=== PATIENT | female | born 1995 | race Caucasian/White ===

== ENCOUNTER 2024-07-16 11:11 | Outpatient (AMB) | payer OTHER, SELFPAY ==
--- NOTE | 2024-07-16 11:21 | MHC.OFFWIV ---
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 Patient Tobacco Use Status: Never used Tobacco Allergies No Known Allergies Allergy (Verified 07/16/24 11:24) Do you need a note to return to daycare/school/sports/work: No HPI HPI Comments History of Present Illness Details Patient is a 29-year-old female who states she starting a new job and part of the paperwork she needs is to have a tuberculosis test to prove she does not have it. She states she was [place] and had all of her normal childhood vaccines. [facility] Social History Patient Tobacco Use Status: Never used Tobacco Review of Systems Const All systems reviewed & are unremarkable except as noted in HPI and below Physical Exam Vital Signs: Last Vital Signs Pulse 78 07/16/24 11:23 BP 112/74 07/16/24 11:23 Pulse Ox 98 07/16/24 11:23 Oxygen Delivery Method Room Air 07/16/24 11:23 BMI result Body Mass Index 22.0 Const General: cooperative, healthy appearing, comfortable, no acute distress and well developed Orientation/consciousness: patient oriented x3 Limitations: no limitations HEENT Head: Yes normal to inspection Ears: hearing grossly normal bilaterally General nose exam: Normal external nose present Face and sinus: Yes normal facial exam Eyes General: appearance normal, both eyes and all related structures Neck Neck: Yes normal visual inspection and Yes full ROM Resp Effort & Inspection: normal respiratory effort and able to speak in complete sentences Skin General skin exam: no rashes or lesions noted Neuro General: patient oriented x3 Extrem General: Yes normal to inspection Assessment & Plan Assessment & Plan (1) Tuberculosis screening: Code(s): Z11.1 - Encounter for screening for respiratory tuberculosis Plan: Ordered T spot for patient, advised to could take a couple of days before the result comes back. Plan see above Orders: Orders T Spot TB Today Z11.1 - Encounter for screening for respiratory tuberculosis Coding Level of Care Code New Pt Level 2 (86736) Diagnoses Tuberculosis screening Z11.1
[2024-07-16 11:23] VITALS: BP 112/74; PULSE 78; O2SAT 98; BMI 22.0
== END 2024-07-16 11:56 | disposition home or self-care (01) ==
PROVIDERS: PCP Internal Medicine; Visit Provider Physician Assistant
DX: Z11.1 Encounter for screening for respiratory tuberculosis (principal)

== ENCOUNTER → 2024-07-16 11:11 | Outpatient (BNVA) | payer OTHER, SELFPAY | PROVIDERS: PCP Internal Medicine ==

== ENCOUNTER 2024-07-16 11:44 | Outpatient (REF) | payer OTHER, SELFPAY ==
[2024-07-19 01:57] LABS: TS Negative Control Passed; TS Panel A 1; TS Panel B 1; TS Positive Control Passed; TSpotTB Negative (Negative)
== END 2024-07-16 11:45 | disposition home or self-care (01) ==
LOC: HO.HMGCLDS 11:44
PROVIDERS: PCP Internal Medicine; Visit Provider Physician Assistant
DX: Z11.1 Encounter for screening for respiratory tuberculosis (principal)
CPT/HCPCS: 36415; 86481; 99202

== ENCOUNTER 2025-02-07 08:39 | Outpatient (AMB) | payer OTHER, SELFPAY ==
--- OUTSIDE RECORDS SUMMARY | 2025-02-07 09:08 | XMS_ITS | Encounter Summary ---
Author Organization [facility] Address [address] [place] [address] Phone Care Team Providers Care Invoicing Machine Operator Name Role Phone Lulu Nelson NP Primary Care Provider [phone] Encounter Details Date Type Department Care Team (Late st Contact Info) Description 05/21/2017 Conversion Encounter [facility] - [address], [address] [place] [address] Lulu Nelson NP [address] [place] [address] Social History Tobacco Use Types Packs/Day Years Used Date Smoking Tobacco: Never Assessed Comments Unknown Sex and Gender Information Value Date Recorded Sex Assigned at Not on file Legal Sex Female 5:45 PM EST Gender Identity Not on file Sexual Orientation Not on file documented as of this encounter Plan of Treatment Not on file documented as of this encounter Visit Diagnoses Not on filedocumented in this encounter Care Teams Invoicing Machine Operator Relationship Specialty Start Date End Date Lulu Nelson NP [address] [place] [address] PCP - General 12/03/16 04/25/21 documented as of this encounter
--- OUTSIDE RECORDS SUMMARY | 2025-02-07 09:08 | XMS_ITS | Encounter Summary ---
Author Organization [facility] Address [address] [place] [address] Phone Care Team Providers Care Lay Out Inspector Name Role Phone Katerin Salvador CNM Unavailable Katerin Hubbard CNM Unavailable [phone] Afsaneh Drummond ASSET PROTECTION MANAGER Unavailable [phone] Flora Moncada MD Unavailable Bre Tolbert CNM Unavailable [phone] Diego Ramirez MD Unavailable [phone] Unknown, Unknown Primary Care Provider Santosh Chung MD Unavailable [phone] Encounter Details Date Type Department Care Team (Latest Contact Info) Description 03/04/2019 Transcribe Orders [facility] [address] [place] [address] Ana M Montes De Oca, CNM [address] [facility], [address] [place] [address] Acute cystitis without hematuria (Primary Dx) Social History Tobacco Use Types Packs/Day Years Used Date Smoking Tobacco: Never Smokeless Tobacco: Never Alcohol Use Standard Drinks/Week Comments Yes 0 (1 standard drink = 0.6 oz pur e alcohol) once monthly Sex and Gender Information Value Date Recorded Sex Assigned at Female 07/26/2018 5:36 PM EDT Gender Identity Female 07/26/2018 5:36 PM EDT Sexual Orientation Straight 07/26/2018 5: 36 PM EDT documented as of this encounter Plan of Treatment Not on file documented as of this encounter Visit Diagnoses Diagnosis Acute cystitis without hematuria- Primary documented in this encounter Additional Health Concerns Infection Onset Date Last Indicated Resolved Time CoV-Risk 09/08/2023 09/08/2023 09/19/2023 1:24 AM EST documented as of this encounter Care Teams Lay Out Inspector Relationship Specialty Start Date End Date Unknown, Unknown, [address] [place] [address] PCP - General 07/26/18 Katerin Salvador CNM [address] [place] [address] Historical LMR Provider 07/31/17 10/20/21 Katerin Hubbard CNM [address] [place] [address] Historical LMR Provider 07/31/17 10/20/21 Afsaneh Drummond NP [address] [place] [address] Historical LMR Provider 07/31/17 10/20/21 Flora Moncada MD [address] [place] [address] Historical LMR Provider 07/31/17 10/20/21 Bre Tolbert CNM [address] [place] [address] Historical LMR Provider 07/31/17 10/20/21 Diego Ramirez MD [address] [facility] [address] [place] [address] [email or web address] Historical LMR Provider 07/31/17 10/20/21 Santosh Gold MD [address] [place] [address] [address] [place] [address] [email or web address] Insurance Assigned Provider 01/17/2406/19/24 documented as of this encounter Additional Source Comments The information contained in this document represents components of the legal health record. It is not the complete legal health record.[facility]
--- OUTSIDE RECORDS SUMMARY | 2025-02-07 09:08 | XMS_ITS | Clinical Summary ---
Author Organization [facility] Address [address] [place] [address] Phone Care Team Providers Care Corporate Representative Name Role Phone Unknown, Unknown Primary Care Provider Unavai lable Allergies No known active allergies Medications Medication Sig Dispensed Refills Start Date End Date Status capsaicin (ZOSTRIX-HP) 0.075 % topical cream Apply topically 3 (three) times a day. Apply to abdominal wall 120 g 09/08/2023 Active Immunizations Name Administration Dates Next Due DTaP 06/07/1998, 5,02/23/1994,08/17,1993 HPV,quadrivalent 01/25/2011,10/26/2010, 0 Hepatitis B 05/04/1999,11/01/1998,06/07/1998 Hib,PRP-T 05/25/1998, 4,1993,06/20 Influenza Quadrivalent Prese rvative Free IM 09/17/2013 Influenza quadrivalent nasal 07/28/2012 MMR 06/07/1998,08/19/1994 Meningococcal MCV4P 09/17/2013,05/17/2008 Polio - OPV 06/07/1998, 5,1993,08/17,1993 Td (adult),2 Lf Tetanus Toxo id, PF, Adsorbed 01/23/2005 Tdap 12/09/2014,05/17/2008 Varicella 05/04/2007,06/07/1998 Family History Medical History Relation Comments Hypertension Father Breast cancer Paternal Grandmother Relation Status Comments Father Alive Mother Alive Paternal Grandmother Social History Tobacco Use Types Packs/Day Years Used Date Smoking Tobacco: Never Smokeless Tobacco: Never Alcohol Use Standard Drinks/Week Comments Yes 0 (1 standard drink = 0.6 oz pur e alcohol) once monthly Education Answer Date Recorded Are you interested in more education? Not on jamilah e 02/07/2023 Are you concerned about learning? Not on file 02/07/2023 No 02/07/2023 No 02/07/2023 Digital Access Answer Date Recorded No 03/07/2023 No 03/07/2023 No 03/07/2023 Reliable internet access at home? Not on file 03/07/2023 Device with a working camera? Not on file Intimate Partner Violence Answer Date R ecorded Are you denied basic needs s uch as food, clothing, or medical care? No 09/08/2023 In the past 12 months have y ou been in a relationship with a person who hurts, threatens, or tries to control you? No 09/08/2023 Are you denied basic needs s uch as food, clothing, or medical care? No 09/08/2023 In the past 12 months have y ou been in a relationship with a person who hurts, threatens, or tries to control you? No 09/08/2023 Sex and Gender Information Value Date Recorded Sex Assigned at Female 07/26/2018 5:36 PM EDT Gender Identity Female 07/26/2018 5:36 PM EDT Sexual Orientation Straight 07/26/2018 5: 36 PM EDT Last Filed Vital Signs Vital Sign Reading Time Taken Comments Blood Pressure 116/79 09/08/2023 9:22 AM EST Pulse 54 09/08/2023 9:22 AM EST Temperature 36.8 ??C (98.2 ??F) 09/08/2023 9:22 AM ES T Respiratory Rate 18 09/08/2023 9:22 AM EST Oxygen Saturation 100% 09/08/2023 9:22 AM EST Inhaled Oxygen Concentration - - Weight 77.1 kg (170 lb) 09/08/2023 7:27 AM EST Height 172.7 cm (5' 8 ) 09/08/2023 7:27 AM EST Body Mass Index 25.85 09/08/2023 7:27 AM EST Plan of Treatment Health Maintenance Due Date Last Done Comments DEPRESSION SCREENING 2005 PAP SMEAR 09/07/2021 09/07/2018, 09/07/2018 INFLUENZA VACCINE (#1) 2024 09/17/2013, 2011 COVID-19 VACCINE ( season) 2024 01/31/2021 Adult Td,Tdap Booster 12/09/2024 12/09/2014 , 05/17/2008, 01/23/2005 HIB VACCINES Aged Out 05/25/1998, 11/13, 1993, Additional history exists No longer eligible based on patient's age to complete this topic MENINGOCOCCAL VACCINES (ACWY) Aged Out 09/17/2013, 05/17/2008 No longer eligibl e based on patient's age to complete this topic SMOKING STATUS SCREENING (Once After 26 Yrs) Completed 09/07/2018 HEPATITIS C SCREENING Completed 03/04/2019 HIV ONE-TIME SCREENING (18-65 YEARS) Completed 03/04/2019 HEPATITIS A VACCINES Aged Out No long er eligible based on patient's age to complete this topic PNEUMOCOCCAL VACCINES (0-49 years) Aged Out No longer eligible based on patient's age to complete this topic Medical Devices Not on file Procedures Procedure Name Priority Date/Time Associated Diagnosis Comments HEPATITIS C ANTIBODY, QUALITATIVE Routine 03/04/2019 9:19 AM EDT History of UTI PAP TEST Routine 09/07/2018 12:00 AM EST from Last 3 Months or Most Recently Relevant to Health Maintenance Results * Hepatitis C antibody, qualitative (03/04/2019 9:19 AM EDT) HCV Negative Negative [facility] Comment: This is a screening test and should be confirmed with molecular testing Blood 03/04/2019 9:19 AM EDT 03/04/2019 9:28 AM EDT Ana M [facility] BLOOD CATHERINE TOBIAS GREENE RADHA [address] [address] * Pap Smear (09/07/2018 12:00 AM EST) 09/07/2018 09/08/2018 2:2 5 PM EST Narrative SEE NARRATIVE - 09/14/2018 12:27 PM EST [address] [address] Motor Mechanic: Diesy Crump MD ?? COTTON WEIGHER Cytology Report FINAL DIAGNOSIS A. ??PAP SMEAR (SUREPATH) CE: SPECIMEN ADEQUACY: Satisfactory for evaluation; transformation zone present. INTERPRETATION: NEGATIVE FOR INTRAEPITHELIAL LESION OR MALIGNANCY. Coccobacilli consistent with shift in imani Electronically Signed Out By: ??NILO Franco(ASCP) The Pap test is a screening test primarily for squamous cancers and precursors and has associated false-negative and false-positive results. ??New technologies such as liquid-based preparations may decrease but will not eliminate all false-negative results. ??Regular sampling and follow-up of unexplained clinical signs and symptoms are recommended to minimize false negative results. CLINICAL HISTORY Date of Last Menstrual Period: ??09/07/2018 Other Clinical Conditions: ??Screening Pap SPECIMEN SOURCE A: PAP SMEAR (SUREPATH) CE Patient Name: ??MARICRUZ RUGGIERO : ??1995 (Age: 23) Sex: ??F Institution: ??[facility] Location: ??[facility] Date of Collection: ??09/07/2018 Date of Reported: ??09/14/2018 12:27 Results to: Ana M Montes De Oca MSN Ana M Montes De Oca CNM CYTOLOGY ORDER ANISH SEE NARRATIVE from Last 3 Months or Most Recently Relevant to Health Maintenance Care Teams Corporate Representative Relationship Specialty Start Date End Date Unknown, Unknown, PCP - General 07/26/18 Additional Source Comments The information contained in this document represents components of the legal health record. It is not the complete legal health record.[facility]
--- OUTSIDE RECORDS SUMMARY | 2025-02-07 09:08 | XMS_ITS | Clinical Summary ---
Author Organization [facility] Address [address] [place] [address] Care Team Providers Care Tunnel Kiln Operator Name Role Phone Unavailable Primary Care Provider Unavailabl e Source Comments PLEASE NOTE, if this patient is a minor, it may be UNLAWFUL to discuss sensitive information that is contained in these records (such as FAMILY PLANNING, MENTAL HEALTH or SUBSTANCE ABUSE) with the minor patient's parent or other person without the patient's specific authorization.[facility] Immunizations Immunization Administration Dates Next Due Moderna COVID-19 Vaccine, re d cap blue label, 12+ Primary Series 01/31/2021,01/01/2021 Social History Tobacco Use Types Packs/Day Years Used Date Smoking Tobacco: Never Assessed Social Connections Answer Date Recorded Social Connections and Isolation 0 01/01/2021 Financial Resource Strain Answer Date R ecorded Financial Resource Strain 0 2020 Stress Answer Date Recorded Stress 0 01/01/2021 Physical Activity Answer Date Recorded Physical Activity 0 01/01/2021 Food Insecurity Answer Date Recorded Food 0 01/01/2021 Transportation Needs Answer Date Record ed Transportation 0 01/01/2021 Housing Stability Answer Date Recorded Housing 0 01/01/2021 Safety and Environment Answer Date Sulaiman rded Safety 0 01/01/2021 Utilities Answer Date Recorded Utilities 0 01/01/2021 Employment Answer Date Recorded Employment 0 01/01/2021 Comments Unknown Sex and Gender Information Value Date Recorded Sex Assigned at Not on file Legal Sex Female 7:10 AM PDT Gender Identity Not on file Sexual Orientation Not on file Plan of Treatment Health Maintenance Due Date Last Done Comments Anxiety Screening 1993 HPV Screening 1993 Hepatitis C Screening 1993 Pap + HPV 1993 Tobacco Screening 1993 HIV Screening 2008 Relationship Safety Screening/Counseling 2008 Hypertension Screening (#1) 2011 Imm-DTaP/Tdap/Td (1 - Tdap) 2012 Imm-Hepatitis B (1 of 3 - 19 + 3-dose series) 2012 Cervical Cancer Screening 2014 Pap Smear 2014 [id number] ( season) 06/13/202401/31/ 021, 01/01/2021 Imm-Influenza (#1) 2024 Alcohol and Drug Screen 10/13/2024 Depression Annual Screen 10/13/2024 Cervical Ablation/Cold-Knife Conization Discontinued Cervical Cryotherapy Discontinued Colposcopy Discontinued Endometrial Biopsy Discontinued Excision/Leep Discontinued HPV Genotyping Discontinued Vaginal Pap Discontinued Vulvoscopy Discontinued Insurance [employer] Member Subscriber Plan / Payer (Ef fective 2019-Present) Name:Dominick Ruggiero Relation to Subscriber:Self Name:Dominick Ruggiero Payer ID:[id number] Group ID:Not on file Type:Medicaid Address: [address] [facility] [address] [place] [address]
--- OUTSIDE RECORDS SUMMARY | 2025-02-07 09:08 | XMS_ITS | Clinical Summary ---
Author Organization [facility] Address [address] [place] [address] Phone Care Team Providers Care Manufacturing Design Engineer Name Role Phone Unavailable Primary Care Provider Unavailabl e Immunizations Immunization Administration Dates Next Due DTaP 06/07/1998, 5,02/23/1994,08/17,1993 HPV, Quadrivalent 01/25/2011,10/26/2010,06/15/20 10 Hep B, ped/adol 05/04/1999,11/01/1998,06/07/1998 Hib (PRP-T) 05/25/1998, 4,1993,06/20 Influenza, injectable, quadr ivalent, preservative free 09/17/2013 Influenza, intranasal, trivalent 07/28/2012 MMR 06/07/1998,08/19/1994 Meningococcal Conj (Menactra) MCV4P 09/17/2013,0 05/17/2008 OPV 06/07/1998, 5,1993,08/17,1993 Td (adult) (MBL), 2 Lf tetan us toxoid, PF, adsorbed 01/23/2005 Tdap 05/17/2008 Varicella 05/04/2007,06/07/1998 Family History Relation Name Status Comments Maternal Grandfather Materna l Uncle: AIDS Maternal Grandmother Materna l Aunt: cancer, substance abuse Other 1 AIDS Other 2 cancer, substan ce abuse Other 3 substance abuse Other 4 substance abuse Other 5 Paternal Grand Father: substance abuse Other 6 Paternal Grand Mother: substance abuse Paternal Grandfather substan ce abuse Paternal Grandmother substan ce abuse Social History Tobacco Use Types Packs/Day Years Used Date Smoking Tobacco: Never Assessed Comments Unknown Sex and Gender Information Value Date Recorded Sex Assigned at Not on file Legal Sex Female 5:45 PM EST Gender Identity Not on file Sexual Orientation Not on file Last Filed Vital Signs Vital Sign Reading Time Taken Comments Blood Pressure 100/56 09/17/2013 12:00 AM EST Pulse 89 07/28/2012 12:00 AM EDT Temperature 36.8 ??C (98.3 ??F) 01/25/2011 12:00 AM E DT Respiratory Rate - - Oxygen Saturation - - Inhaled Oxygen Concentration - - Weight 68.3 kg (150 lb 9.6 oz) 09/17/2013 12:00 AM EST Height 171.5 cm (5' 7.5 ) 09/17/2013 12:00 AM ES T Body Mass Index 23.24 09/17/2013 12:00 AM EST Plan of Treatment Health Maintenance Due Date Last Done Comments DTaP,Tdap,and Td Vaccines (7 - Td or Tdap) 05/17/2018 05/17/2008, 01/23/2005, 06/07/1998, Additional history exists Influenza Vaccines (#1) 2024 09/17/2013, 07/28 COVID-19 Vaccine ( season) 2024 HIB Vaccines Aged Out 05/25/1998, 11/13, 1993, Additional history exists No longer eligible based on patient's age to complete this topic IPV Vaccines Completed 06/07/1998, 10/13, 1993, Additional history exists MMR Vaccines Completed 06/07/1998, 08/19/1994 Hepatitis B Vaccines Completed 05/04/1999, 11/01/1998, 06/07/1998 Varicella Vaccines Completed 05/04/2007, 06/07/1998 HPV Vaccines Completed 01/25/2011, 10/13, 06/15/2010 Meningococcal Vaccine Aged Out 09/17/2013, 008 No longer eligible based on patient's age to complete this topic Hepatitis A Vaccines Aged Out No long er eligible based on patient's age to complete this topic Men B Vaccine Aged Out No longer elig ible based on patient's age to complete this topic Pneumococcal Vaccine Aged Out No long er eligible based on patient's age to complete this topic Procedures * Due to [place] state law, this organization might not be sharing sensitive test results. Procedure Name Priority Date/Time Associated Diagnosis Comments CHLAMYDIA AND GONORRHEA, AMPLIFIED Routine 11/25/2014 12:00 AM EST from Last 3 Months or Most Recently Relevant to Health Maintenance Results * Due to [place] state law, this organization might not be sharing sensitive test results. * Chlamydia and Gonorrhoea, Amplified (11/25/2014 12:00 AM EST) SOURCE (CHLAMYDIA): CERVIX CONVERTED LABS Comment: Ugo Aceves ??11/25/2014 02:15:14 PM > Negative Reason: Received -[facility] Lab Order Black Leather Buffer CHLAMYDIA TRACHO A Negative Negative CONVERTED LABS Comment: Ugo Aceves ??11/25/2014 02:15:14 PM > Negative Reason: Received -[facility] Lab Order Black Leather Buffer CHLAMYDIA TRACHO A Negative Negative CONVERTED LABS Comment: Ugo Aceves ??11/25/2014 02:15:14 PM > Negative Reason: Received -[facility] Lab Order Black Leather Buffer ORDERING PROVIDER LILA NGUYỄN CONVERTED LABS Comment: Ugo Aceves ??11/25/2014 02:15:14 PM > Negative Reason: Received -[facility] Lab Order Black Leather Buffer SOURCE (NEISSERIA): CERVIX CONVERTED LABS Comment: Ugo Aceves ??11/25/2014 02:15:14 PM > Negative Reason: Received -[facility] Lab Order Black Leather Buffer NEISSERIA GONORRHOEAE A Negative Negative CONVERTED LABS Comment: Ugo Aceves ??11/25/2014 02:15:14 PM > Negative Reason: Received -[facility] Lab Order Black Leather Buffer 11/25/2014 Narrative CONVERTED LABS - 11/25/2014 12:00 AM EST Chlamydia and GC DNA us Jimmy Thakkar MD LAB MICROBIOLOGY - GENERAL ORDER ANISH Final Result CONVERTED LABS from Last 3 Months or Most Recently Relevant to Health Maintenance
--- OUTSIDE RECORDS SUMMARY | 2025-02-07 09:08 | XMS_ITS | Clinical Summary ---
Author Organization [facility] Address [address] [place] [address] [address] [place] [address] Care Team Providers Care Bilingual Operator Name Role Phone Unavailable Primary Care Provider Unavailabl e Allergies No known active allergies Medications No known medications Encounters Date Type Department Care Team Description 12/20/2024 3:00 PM EDT Office Visit [facility] [address] [place] [address] Siobhan Urbina Encounter for dental examination (Primary Dx); Stage 2 grade B generalized periodontitis per AAP/EFP 2017 classification from Last 3 Months Social History Tobacco Use Types Packs/Day Years Used Date Smoking Tobacco: Never Smokeless Tobacco: Never Tobacco Cessation:Counseling Given: Not Answered Alcohol Use Standard Drinks/Week Comments Yes 0 (1 standard drink = 0.6 oz pur e alcohol) Comments Unknown Sex and Gender Information Value Date Recorded Sex Assigned at Female 12/09/2024 9:29 AM EST Legal Sex Female 9:24 AM EST Gender Identity Female 12/09/2024 9:29 AM EST Sexual Orientation Straight 12/09/2024 9: 29 AM EST Plan of Treatment Upcoming Encounters Date Type Department Care Team (Late st Contact Info) Description 07/04/2025 4:00 PM EDT Office Visit [facility] [address] [place] [address] Siobhan Urbina Health Maintenance Due Date Last Done Comments Depression Screening 1993 HIV Screening 1993 SDOH Screening 1993 Alcohol/Substance Use Screening 2005 Family Planning (PISQ) 2008 Hepatitis C Screening 2011 Pap Smear 2014 Cervical Cancer Screening 2023 HPV/Cotest 2023 COVID-19 Vaccine ( season) 2024 10/03/2021, 01/31/2021, 01/01/2021 Dental Oral Exam 06/23/2025 12/20/2024 Dental Prophylaxis 06/23/2025 12/20/2024 Tobacco Screening 12/20/2025 12/20/2024 Dental X-Ray: Bitewings 12/21/2025 12/20/2024 Dental X-Ray: Full Mouth 12/22/2027 12/20/2024 DTaP/Tdap/Td Vaccines (9 - Td or Tdap) 07/07/2034 07/07/2024, 12/09/2014, 05/17/2008, Additional history exists Zoster Vaccines (1 of 2) 2043 RSV Patients and Patients Aged 60 years or older (1 - 1-dose 75+ series) 2068 HIB Vaccines Aged Out 05/25/1998, 11/13, 1993, Additional history exists No longer eligible based on patient's age to complete this topic IPV Vaccines Completed 06/07/1998, 10/13, 1993, Additional history exists Hepatitis B Vaccines Completed 05/04/1999, 11/01/1998, 06/07/1998 HPV Vaccines Completed 01/25/2011, 10/13, 06/15/2010 Meningococcal Vaccine Aged Out 09/17/2013, 008 No longer eligible based on patient's age to complete this topic Influenza Vaccine Completed 07/07/2024, , 07/28/2012 Hepatitis A Vaccines Aged Out No long er eligible based on patient's age to complete this topic Pneumococcal Vaccine: Pediatrics (0 to 5 Years) and At-Risk Patients (6 to 49) Years) Aged Out No longer eligible based on patient's age to complete this topic RSV under 20 months Aged Out No longe r eligible based on patient's age to complete this topic Rotavirus Vaccines Aged Out No longer eligible based on patient's age to complete this topic Procedures Procedure Name Priority Date/Time Associated Diagnosis Comments CASE PRESENTATION, DETAILED AND EXTENSIVE TREATMENT PLANNING Routine 12/20/2024 3:00 PM EDT ORAL HYGIENE INSTRUCTIONS Routine 2024 3:00 PM EDT INTRAORAL - COMPLETE SERIES OF RADIOGRAPHIC IMAGES Routine 12/20/2024 3:00 PM EDT PROPHYLAXIS - ADULT Routine 12/20/2024 3 :00 PM EDT COMPREHENSIVE ORAL EVALUATION - NEW OR ESTABLISHED PATIENT Routine 12/20/2024 3:00 PM EDT from Last 3 Months Insurance [facility] AD[place]
--- NOTE | 2025-02-07 09:56 | AM.OFFWIN_ITS ---
Intake Vital Signs 02/07/25 09:57 Height 5 ft 8 in Weight 157 lb BMI 23.9 BP 112/70 Blood Pressure Location Rt brachial Position Sitting Intake Visit Reasons: EP rash Intake Note: Patient here for right sided back rash that has been present for about 3 weeks. Patient Tobacco Use Status: Never used Tobacco Allergies No Known Allergies Allergy (Verified 07/16/24 11:24) Do you need a note to return to daycare/school/sports/work: No HPI HPI Comments History of Present Illness Details History of Present Illness - The patient is a 29-year-old female pr esenting with a rash on the skin on her right low back. - Approximately three weeks ago, she not iced a rash characterized by a ring- shaped appearance, initially misdiagnosed by the patient as ringworm. - The use of antifungal cream led to inc reased dryness without improvement, garcia ggesting misidentification. - The rash location is surrounded by shadia ker sticky areas from prior Band-Aid application. - The patient reports occasional itching - The patient reported no prior history of eczema and denied other potential causes like fever or tick bites. - The rash developed with red borders bu t has since evolved in appearance, with no trauma to the area. Physical Exam General: Cooperative, healthy appearing, comfortable, no acute distress and well developed Orientation: Patient oriented x3 Limitations: No limitations Head: Normal to inspection Ears: Hearing grossly normal bilaterally Nose: Normal External nose present Face and sinus: Normal facial exam Eyes: Appearance normal, both eyes and all related structures Neck: Normal visual inspection and Yes full ROM Respiratory: Normal respiratory effort and able to speak in complete sentences. Skin: right low back has 2cm square area of raised erythema with dryness Neuro: Patient oriented x3 Extremities: Normal to inspection [facility] Social History Patient Tobacco Use Status: Never used Tobacco Review of Systems Const All systems reviewed & are unremarkable except as noted in HPI and below Physical Exam Vital Signs: Last Vital Signs BP 112/70 02/07/25 09:57 BMI result Body Mass Index 23.9 Assessment & Plan Assessment & Plan (1) Eczema: Code(s): L30.9 - Dermatitis, unspecified Qualifiers: Eczema type: unspecified Qualified Code(s): L30.9 - Dermatitis, unspecified Plan: The rash is consistent with eczema, and treatment with Triamcinolone cream is advised. The patient will apply it twice daily, with improvement expected within a few days. This intervention addresses inflammation and alleviates itchiness. If no improvement in her symptoms after 1 week of twice daily usage, she should return to the clinic or follow up with her PCP. Patient was informed and verbally consented to the use of an ambient scribe for clinic note documentation during this visit. Medications: New triamcinolone acetonide 0.1% 1 appl topical BID 30 grams 0RF Coding Level of Care Code Est Pt Level 3 (41387) Diagnoses Eczema, unspecified type L30.9 Eczema type: unspecified
[2025-02-07 09:57] VITALS: BP 112/70; BMI 23.9
== END 2025-02-07 10:24 | disposition home or self-care (01) ==
PROVIDERS: PCP Internal Medicine; Visit Provider Physician Assistant
DX: L30.9 Dermatitis, unspecified (principal)

== ENCOUNTER → 2025-02-07 08:39 | Outpatient (BNVA) | payer OTHER, SELFPAY | PROVIDERS: PCP Internal Medicine | DX: L30.9 Dermatitis, unspecified (principal) | CPT/HCPCS: 99212 ==

== ENCOUNTER 2025-03-03 12:45 | Outpatient (AMB) | payer OTHER, SELFPAY ==
--- NOTE | 2025-03-03 12:47 | A.OFFPC_ITS ---
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 Last pap smear November Is last menstrual period known: Yes Last menstrual period: 02/09/25 Allergies No Known Allergies Allergy (Verified 03/03/25 13:30) Medication List - Last Reconciled 03/03/25 by Leela George MD No Known Home Meds Tobacco use date assessed: 03/03/25 Dental Screening Dental Screen Date: 03/03/25 Did you have a dental visit in the last 12 months?: Yes Did you have a dental problem in the last 6 months where you did not have access to dental care?: No Was dental information given to patient?: Patient has dentist HPI MEDICAL ASSISTANT PER DIEM-PE HPI Details - The patient is a 29-year-old female ne w to practice, here to establish care and for physical exam. She also requests control counseling and STI testing due to recent resumption of sexual activity. - She has removed the Nexplanon due to h ormonal side effects and is considering other contraceptive options such as oral pills or a patch. - Her medical history includes cannabis hyperemesis syndrome, managed by cessation of cannabis use since December, and a past H. pylori infection treated with antibiotics and omeprazole. - She reports regular menstruation and a family history of prostate and breast cancer. - Past contraceptive methods include the oral contraceptive pill and NuvaRing, neither of which she found suitable. - Up to date with routine vaccinations e xcept for COVID-19 booster due to a bad reaction. - Cervical cancer screening is normal, p erformed within the past few months. - Discussed breast cancer risk due to fa melanie history and the need for regular exams. [facility] Medical History (Updated 03/03/25 @ 13:38 by Leela George MD) Cannabis hyperemesis syndrome concurrent with and due to cannabis abuse Surgical History (Updated 03/03/25 @ 13:38 by Leela George MD) No pertinent past surgical history Family History (Updated 03/03/25 @ 13:42 by Leela George MD) Paternal Aunt Mental health disorder Substance abuse Paternal Grandmother Breast cancer, Onset Age: 70 Father Prostate cancer, Onset Age: 60 Social History Housing: House Patient Tobacco Use Status: Never used Tobacco e-Cigarette/Vaping Use: Never Used service: No Current occupational status: employed Cognitive needs: No Hearing needs: No Vision needs: No Female Reproductive History Menstrual Age of Menarche: 10 Duration of menses: 6-7 days Date of last menstrual period: 02/09/25 Questionnaire PHQ-9 Over the last 2 weeks, how often have you been bothered by any of the following problems? 1. Little interest or pleasure in doing things: not at all 2. Feeling down, depressed, or hopeless: not at all 3. Trouble falling or staying asleep, or sleeping too much: not at all 4. Feeling tired or having little energy: not at all 5. Poor appetite or overeating: not at all 6. Feeling bad about yourself - or that you are a failure or have let yourself or your family down: not at all 7. Trouble concentrating on things, such as reading the newspaper or watching television: not at all 8. Moving or speaking so slowly that other people could have noticed. Or the opposite - being so fidgety or restless that you have been moving around a lot more than usual: not at all 9. Thoughts that you would be better off or of hurting yourself in some way: not at all Total score: 0 Depression Screening Interpretation: Negative Depression Screening Done: Yes 33860 - PHQ-9 Billing: Yes Source: Developed by Drs. Grant Abreu, Ayde Sorenson, Manuel Fischer and colleagues, with an educational yuki from [employer]. Thrive Questionnaire Date Thrive assessed: 03/03/25 I am a: Patient What is your living situation today?: I have a steady place to live Within the past 12 months, did the food you bought not last and you didn't have the money to get more?: Never true Within the past 12 months, did you worry whether your food would run out before you got money to buy more?: Never true Do you have trouble paying for medicines?: No Do you have trouble getting transportation to medical appointments?: No Do you have trouble paying your heating and electricity bill?: No Do you have trouble taking care of your child, family member or friend?: No Do you have trouble with day-to-day activities such as bathing, preparing meals, shopping, managing finances, etc.?: No Are you currently unemployed and looking for a job?: No Are you interested in more education?: No Please select the resources that you would like help with: None Currently or been in a relationship where the following occur: No concerns reported THRIVE Score: 0 AUDIT C Alcohol Use Questionnaire (AUDIT-C) 1. How often do you have a drink containing alcohol?: Monthly or less 2. How many drinks containing alcohol do you have on a typical day when you are drinking?: 1 or 2 3. How often do you have six or more drinks on one occasion?: Never Total Score: 1 Score Reviewed/Action Taken: Yes REJI-7 AMB Questionnaire REJI-7 Date REJI - 7 assessed: 03/03/25 Feeling nervous, anxious, or on edge: 1 = Several days Not being able to stop or control worryin = Not at all Worrying too much about different things: 1 = Several days Trouble relaxin = Not at all Being so restless that it is hard to sit still: 0 = Not at all Becoming easily annoyed or irritable: 1 = Several days Feeling afraid as if something awful might happen: 0 = Not at all Total REJI-7 score (0-4 normal; 5-9 mild; 10-14 moderate; 15-21 severe): 3 Source: Developed by Drs. Grant Abreu, Ayde Sorenson, Manuel Fischer and colleagues, with an educational yuki from [employer]. REJI-7 Assessment Billing REJI-7 Assessment Tool: REJI-7 Assessment 23029 Review of Systems Const Denies body aches, Denies fatigue, Denies fever(s), Denies headache(s) and Denies weakness Eyes Denies change in vision, Denies eye discharge and Denies itchy eyes ENT Denies dizziness, Denies headache(s), Denies nasal congestion, Denies nasal discharge and Denies sore throat Card Denies chest pain, Denies lightheadedness, Denies palpitations and Denies dyspnea Resp Denies chest congestion, Denies cough, Denies dyspnea and Denies wheezing GI Denies abdominal pain, Denies change in bowel habits and Denies heartburn Denies abnormal vaginal bleeding, Denies hematuria, Denies urinary frequency, Denies dysuria, Denies urinary urgency, Denies vaginal discharge and Denies vaginal pruritus Musc Reports no additional complaints Skin/Breast Denies breast pain, Denies breast mass, Denies lesions and Denies rash Neuro Denies dizziness, Denies headache(s) and Denies weakness Psych Reports no additional complaints Endo Denies fatigue, Denies polydipsia, Denies polyuria and Denies palpitations Chinedu/Lymph Denies easy bruising Aller/Immun Denies itchy eyes, Denies seasonal rhinorrhea and Denies wheezing Physical exam (Primary Care) Vital Signs: Last Vital Signs Pulse 95 03/03/25 12:48 Resp 18 03/03/25 12:48 BP 118/74 03/03/25 12:48 Pulse Ox 95 03/03/25 12:48 Oxygen Delivery Method Room Air 03/03/25 12:48 BMI result Body Mass Index 23.7 Tobacco/Smoking Status: Tobacco use Status Tobacco use date assessed 03/03/25 03/03/25 12:51 Patient Tobacco Use Status Never used Tobacco 03/03/25 12:48 e-Cigarette/Vaping Use Never Used 03/03/25 13:01 PHQ-9: PHQ-9 Score PHQ-9: Total score 0 03/08/25 17:27 Depression Screening Interpretation: Negative Thrive Assessment: Date of Thrive Assessment Date Thrive assessed 03/03/25 03/03/25 12:51 Currently or been in a relationship where the following occur: No concerns reported Const General: no acute distress and alert Nutritional Appearance: average body habitus Orientation/consciousness: patient oriented x3 HENMT Head: Yes normocephalic and Yes atraumatic Ears: external ears normal, TM's normal bilaterally and EAC's normal General nose exam: Normal external nose present and No nasal discharge present Face and sinus: Yes face symmetric Mouth: Normal oral and palatal mucosa present, lip normal, tongue normal, oropharynx normal and moist mucous membranes Eyes General: appearance normal, both eyes and all related structures Eyelids: Yes eyelids normal Conjunctivae: conjunctivae normal Sclerae: sclerae normal Pupils: Equal, round and reactive pupils present EOM: EOMs intact bilaterally Neck Neck: Yes full ROM, Yes no lymphadenopathy and Yes supple Thyroid: Thyroid normal Chest Chest palpation & inspection: normal inspection of the chest Breast/axilla palpation: normal palpation of the breasts Resp Effort & Inspection: normal respiratory effort and able to speak in complete sentences Auscultation: clear to auscultation bilaterally Cardio Rate: regular rate Rhythm: regular rhythm Heart sounds: S1 normal heart sound present and S2 normal heart sound present GI Palpation (GI): Soft to palpation, nontender, no guarding and no masses Auscultation: normal bowel sounds General: Yes no CVA tenderness Back/Spine/Pelvis Back: no CVA tenderness and No back tenderness Skin General skin exam: no rashes or lesions noted Neuro General: patient oriented x3, gait normal, moves all extremities, Normal light touch and pain sensation, no focal motor deficits and CN's II-XI intact bilaterally Cranial nerves: Yes Equal, round and reactive pupils present Cognition (Neuro): normal cognition Gait exam (Neuro): Normal gait present Motor exam (neuro): 5/5 motor strength present throughout Extrem General: Yes normal to inspection, Yes full ROM, Yes no joint enlargement, Yes no pedal edema and Yes normal gait Psych Appearance: grossly normal and well kempt Mental Status: mental status grossly normal Speech and movement: Normal speech and movement present Affect: normal affect Attitude: cooperative Thought process: Normal thought process present Thought content: Normal thought content present Coding Level of Care Code New Pt Prev Care 18-39yr(26915 Diagnoses Annual visit for general adult medical examination with abnormal findings Z00. Screening for malignant neoplasm of cervix Z12.4 Encounter for counseling regarding contraception Z. Additional Codes REJI-7 Assessment Billing - REJI-7 Assessment Tool: REJI-7 Assessment 19548 ([id number]) PHQ-9 - 13687 - PHQ-9 Billing: Yes ([id number]) Assessment & Plan Assessment & Plan (1) Annual visit for general adult medical examination with abnormal findings: Code(s): Z00.01 - Encounter for general adult medical examination with abnormal findings (2) Screening for malignant neoplasm of cervix: Code(s): Z12.4 - Encounter for screening for malignant neoplasm of cervix (3) Encounter for counseling regarding contraception: Code(s): Z30.09 - Encounter for other general counseling and advice on contraception Plan The plan includes continuing with alternative control options following the removal of Nexplanon due to intolerable side effects, especially considering oral pills or a contraceptive patch. STI screenings are scheduled, reflecting the recent change in sexual activity. For cannabis hyperemesis syndrome, abstinence from cannabis continues to resolve symptoms. Anxiety will be managed without medications, acknowledging the patient's comfort with current coping strategies. Regular breast exams are emphasized due to a family history of breast cancer, although a mammogram is deferred. The patient is considering breast reduction surgery due to symptomatic back pain. Recommended lab tests will cover comprehensive blood profiles and vitamin D levels. Routine vaccinations are generally up to date, with exceptions made due to adverse responses. - Continue considering different contraceptive methods with possible pill or patch use. - Schedule and complete STI testing as discussed. - Abstain from cannabis to prevent nausea and vomiting. - Use condoms for added protection against STIs. - Maintain up to date with routine health screenings. - Consider insurance options regarding potential breast reduction surgery. - Follow up as advised for regular health checks and discuss concerns with healthcare providers. Patient was informed and verbally consented to the use of an ambient scribe for clinic note documentation during this visit. Orders: Orders Hepatitis B,C Profile 03/03/25 R53.83 - Other fatigue, Z00.01 - Encounter for general adult medical examination with abnormal findings Complete Blood Count Auto Diff 03/03/25 R53.83 - Other fatigue, Z00.01 - Encounter for general adult medical examination with abnormal findings, Z13.1 - Encounter for screening for diabetes mellitus, Z13.220 - Encounter for screening for lipoid disorders Lipid Panel 03/03/25 R53.83 - Other fatigue, Z00.01 - Encounter for general adult medical examination with abnormal findings, Z13.1 - Encounter for screening for diabetes mellitus, Z13.220 - Encounter for screening for lipoid disorders Basic Metabolic Panel Fasting 03/03/25 R53.83 - Other fatigue, Z00.01 - Encounter for general adult medical examination with abnormal findings, Z13.1 - Encounter for screening for diabetes mellitus, Z13.220 - Encounter for screening for lipoid disorders Vitamin D 25-OH Total 03/03/25 R53.83 - Other fatigue, Z00.01 - Encounter for general adult medical examination with abnormal findings, Z13.1 - Encounter for screening for diabetes mellitus, Z13.220 - Encounter for screening for lipoid disorders HIV Ab/Ag 03/03/25 Z00.01 - Encounter for general adult medical examination with abnormal findings, Z11.3 - Encounter for screening for infections with a predominantly sexual mode of transmission CT NG by PCR 03/03/25 R53.83 - Other fatigue, Z00.01 - Encounter for general adult medical examination with abnormal findings, Z11.3 - Encounter for sc reening for infections with a predominantly sexual mode of transmission, Z13.1 - Encounter for screening for diabetes mellitus, Z13.220 - Encounter for screening for lipoid disorders Aspartate Amino Transferase 03/03/25 R53.83 - Other fatigue, Z00.01 - Encounter for general adult medical examination with abnormal findings, Z13.1 - Encounter for screening for diabetes mellitus, Z13.220 - Encounter for screening for lipoid disorders Alanine Aminotransferase 03/03/25 R53.83 - Other fatigue, Z00.01 - Encounter for general adult medical examination with abnormal findings, Z13.1 - Encounter for screening for diabetes mellitus, Z13.220 - Encounter for screening for lipoid disorders Referrals [facility] Referral Z12.4 - Encounter for screening for malignant neoplasm of cervix, Z30.09 - Encounter for other general counseling and advice on contraception
[2025-03-03 12:48] VITALS: BP 118/74; PULSE 95; RESP 18; O2SAT 95; BMI 23.7
--- OUTSIDE RECORDS SUMMARY | 2025-03-03 12:48 | XMS_ITS | Clinical Summary ---
Author Organization [facility] Address [address] [place] [id number] Phone Care Team Providers Care Executive Administrative Asst Name Role Phone Unavailable Primary Care Provider [...] complete this topic Procedures * Due to [place] state law, this organization might not be sharing sensitive test results. Procedure Name Priority Date/Time Associated Diagnosis Comments CHLAMYDIA AND GONORRHEA, AMPLIFIED Routine 11/25/2014 12:00 AM EST from Last 3 Months or Most Recently Relevant to Health Maintenance Results * Due to [place] state law, this organization might not be sharing sensitive test results. * Chlamydia and Gonorrhoea, Amplified (11/25/2014 12:00 AM EST) SOURCE (CHLAMYDIA): CERVIX CONVERTED LABS Comment: Ugo Aceves ??11/25/2014 02:15:14 PM > Negative Reason: Received -[facility] Lab Order Edi Analyst CHLAMYDIA TRACHO A Negative Negative CONVERTED LABS Comment: Ugo Aceves ??11/25/2014 02:15:14 PM > Negative Reason: Received -[facility] Lab Order Edi Analyst CHLAMYDIA TRACHO A Negative Negative CONVERTED LABS Comment: Ugo Aceves ??11/25/2014 02:15:14 PM > Negative Reason: Received -[facility] Lab Order Edi Analyst ORDERING PROVIDER LILA NGUYỄN CONVERTED LABS Comment: Ugo Aceves ??11/25/2014 02:15:14 PM > Negative Reason: Received -[facility] Lab Order Edi Analyst SOURCE (NEISSERIA): CERVIX CONVERTED LABS Comment: Ugo Aceves ??11/25/2014 02:15:14 PM > Negative Reason: Received -[facility] Lab Order Edi Analyst NEISSERIA GONORRHOEAE A Negative Negative CONVERTED LABS Comment: Ugo Aceves ??11/25/2014 02:15:14 PM > Negative Reason: Received -[facility] Lab Order Edi Analyst 11/25/2014 Narrative CONVERTED LABS - 11/25/2014 12:00 AM EST Chlamydia and GC DNA us Jimmy Thakkar MD LAB MICROBIOLOGY - GENERAL ORDER ANISH Final Result CONVERTED LABS from Last 3 Months or Most Recently Relevant to Health Maintenance
--- OUTSIDE RECORDS SUMMARY | 2025-03-03 12:48 | XMS_ITS | Clinical Summary ---
Author Organization [facility] Address [address] [place] [address] Care Team Providers Care District Branch Manager Name Role Phone Unavailable Primary Care Provider [...] Cervical Cancer Screening 2014 Pap Smear 2014 [id number] ( season) 06/13/202401/31/ 021, 01/01/2021 Imm-Influenza (#1) 2024 Alcohol and Drug Screen 10/13/2024 Depression Annual Screen 10/13/2024 Cervical Ablation/Cold-Knife Conization Discontinued Cervical Cryotherapy Discontinued Colposcopy Discontinued Endometrial Biopsy Discontinued Excision/Leep Discontinued HPV Genotyping Discontinued Vaginal Pap Discontinued Vulvoscopy Discontinued Insurance Mobile-XL PLAN Member Subscriber Plan / Payer (Ef fective 2019-Present) Name:Dominick Ruggiero Relation to Subscriber:Self Name:Dominick Ruggiero Payer ID:[id number] Group ID:Not on file Type:Medicaid Address: [facility] [address] [place] [address]
--- OUTSIDE RECORDS SUMMARY | 2025-03-03 12:48 | XMS_ITS | Encounter Summary ---
Author Organization [facility] Address [address] [place] [id number] Phone Care Team Providers Care Pound Attendant Name Role Phone Lulu Nelson NP Primary Care Provider [phone] Encounter Details Date Type Department Care Team (Late st Contact Info) Description 05/21/2017 Conversion Encounter [facility] - [address], [address] [place] [address] Lulu Nelson NP [address] [place] [address] Social History Tobacco Use Types Packs/Day Years [...] on filedocumented in this encounter Care Teams Pound Attendant Relationship Specialty Start Date End Date Lulu Nelson NP [address] [place] [address] PCP - General 12/03/16 04/25/21 documented as of this encounter
--- OUTSIDE RECORDS SUMMARY | 2025-03-03 12:48 | XMS_ITS | Clinical Summary ---
Author Organization [facility] [employer] Address [address] [facility] [address] [place] [address] Care Team Providers Care Certified Professional Midwife Name Role Phone Unavailable Primary Care Provider Unavailabl e Allergies No known active allergies Medications No known medications Encounters Date Type Department Care Team Description 12/20/2024 3:00 PM EDT Office Visit [facility] [address] [place] [address] Siobhan Urbina Encounter for dental examination (Primary [...] Description 07/04/2025 4:00 PM EDT Office Visit [facility] [address] [place] [address] Siobhan Urbina Health Maintenance Due Date Last Done Comments Depression Screening 1993 HIV Screening 1993 SDOH Screening 1993 Disability Screening 1993 Alcohol/Substance Use Screening 2005 Family [...] on patient's age to complete this topic Meningococcal B Vaccine Aged Out No l onger eligible based on patient's age to complete [...] PM EDT from Last 3 Months Insurance [facility] MEDICAID STAND ADULT
== END 2025-03-03 14:12 | disposition home or self-care (01) ==
LOC: HO.HMCC 12:46
PROVIDERS: PCP Internal Medicine; Visit Provider Internal Medicine
DX: Z00.00 Encounter for general adult medical examination without abnormal findings (principal)

== ENCOUNTER 2025-03-03 12:45 | Outpatient (REF) | payer OTHER, SELFPAY ==
[2025-03-04 04:00] LABS: CT PCR NOT DETECTED (Not Detect.); NG PCR NOT DETECTED (Not Detect.)
== END 2025-03-03 12:46 | disposition home or self-care (01) ==
LOC: HO.LAB 12:45
PROVIDERS: PCP Internal Medicine; Visit Provider Internal Medicine
DX: Z00.01 Encounter for general adult medical examination with abnormal findings (principal); R53.83 Other fatigue; Z13.220 Encounter for screening for lipoid disorders; Z13.1 Encounter for screening for diabetes mellitus; Z11.3 Encounter for screening for infections with a predominantly sexual mode of transmission
CPT/HCPCS: 87491; 87591; 96127; 99385

== ENCOUNTER 2025-03-11 08:51 | Outpatient (REF) | payer OTHER, SELFPAY ==
--- OUTSIDE RECORDS SUMMARY | 2025-03-11 08:52 | XMS_ITS | Encounter Summary ---
Author Organization [facility] Address [address] [place] [address] Phone Care Team Providers Care Mac Developer Name Role Phone Lulu Nelson NP Primary Care Provider [phone] Encounter Details Date Type Department Care Team (Late st Contact Info) Description 05/21/2017 Conversion Encounter [facility] - [address], [address] [place] [address] Lulu Nelson NP [address] [place] [address] Social History Tobacco Use Types Packs/Day Years [...] on filedocumented in this encounter Care Teams Mac Developer Relationship Specialty Start Date End Date Lulu Nelson NP [address] [place] [address] PCP - General 12/03/16 04/25/21 documented as of this encounter
[2025-03-11 10:24] LABS: MANUAL DIFF FLAG NO
[2025-03-11 10:32] LABS: Basophils Percent Auto 0.7 % (0-2); Eosinophils Absolute Auto 0.1 X10*3/uL (0.0-0.4); Eosinophils Percent Auto 2.1 % (0-4); Hematocrit 39.5 % (37.0-47.0); Hemoglobin 12.7 g/dl (12.0-16.0); Imm Gran Abs Auto 0.02 X10*3/uL (0.00-0.03); Imm Gran Pct Auto 0.4 % (0.0-0.4); Lymphocytes Absolute Auto 2.4 X10*3/uL (1.2-4.9); Lymphocytes Percent Auto 44.7 % (20-40); Mean Corpuscular HGB Conc 32.2 g/dl (31.0-35.0); Mean Corpuscular Volume 87.2 fL (80.0-98.0); Mean Platelet Volume 9.7 fL (9.4-12.3); Monocytes Absolute Auto 0.3 X10*3/uL (0.1-1.2); Monocytes Percent Auto 4.7 % (2-11); Neutrophils Absolute Auto 2.5 x10*3/uL (2.0-8.3); Neutrophils Percent Auto 47.4 % (45-73); Platelet Count 308 X10*3/uL (160-400); Red Blood Count 4.53 X10*6/uL (4.20-5.50); White Blood Count 5.4 X10*3/uL (4.8-10.8)
[2025-03-11 10:51] LABS: Alanine Aminotransferase 14 U/L (0-31); Anion Gap 7 (12-20); Aspartate Amino Transferase 21 U/L (5-31); Blood Urea Nitrogen 17 mg/dL (9-16); Calcium 9.3 mg/dL (8.4-10.2); Carbon Dioxide 27 mmol/L (22-29); Chloride 107 mmol/L (96-108); Cholesterol 232 mg/dL (<200); Estimated Glomerular Filt Rate > 60; Glucose Fasting 80 mg/dL (60-99); HDL Cholesterol 89 mg/dL (>40); LDL Cholesterol Calculated 131 mg/dL (<100); Potassium 4.2 mmol/L (3.3-5.1); Sodium 137 mmol/L (135-145); Triglycerides 62 mg/dL (<150)
[2025-03-11 11:06] LABS: Vitamin D 25-OH Total 37.1 ng/mL (>30)
[2025-03-11 11:13] LABS: HBS Num1 172.74 mIU/mL (0-7.99); HBc Num1 0.11 S/CO (0.00-0.79); HBsAGNum1 0.34 S/CO (0.00-0.99); HIV AB/AG Nonreactive (Nonreactive); HIV Num 1 0.09 S/CO (0.00-0.99); Hepatitis B Core Antibody Nonreactive (Nonreactive); Hepatitis B Surface Antigen Negative (Negative); ~HepC Num1 0.16 S/CO (0.00-0.79); ~Hepatitis B Surface Antibody REACTIVE (Nonreactive); ~Hepatitis C Antibody Nonreactive (Nonreactive)
== END 2025-03-11 08:52 | disposition home or self-care (01) ==
LOC: HO.HMGCLDS 08:51
PROVIDERS: PCP Internal Medicine; Visit Provider Internal Medicine
DX: Z00.01 Encounter for general adult medical examination with abnormal findings (principal); Z13.220 Encounter for screening for lipoid disorders; Z13.1 Encounter for screening for diabetes mellitus; R53.83 Other fatigue; Z11.3 Encounter for screening for infections with a predominantly sexual mode of transmission
CPT/HCPCS: 36415; 80048; 80061; 82306; 84450; 84460; 85025; 86704; 86706; 86803; 87340; 87389